=== PATIENT | male | born 1970 | race Caucasian/White ===

== ENCOUNTER 2020-06-06 16:29 | Emergency (ER) | payer OTHER ==
[~2020-06-06] VITALS: Ht 177.8 cm; Wt 72.7 kg
--- NOTE | 2020-06-06 18:05 | REPVR ---
PROCEDURE INFORMATION: Exam: US Pelvis Limited, Male Exam date and time: 06/06/2020 5:45 PM Age: 50 years old Clinical indication: Pain; Other: RT inguinal; Additional info: Bulge right inguinal region; ? Hernia TECHNIQUE: Imaging protocol: Real-time pelvic ultrasound with image documentation. COMPARISON: No relevant prior studies available. FINDINGS: Soft tissues: At rest there is a right inguinal hernia with protrusion of mesenteric fat measuring 1.3 cm. With Valsalva there is protrusion of bowel into the right inguinal canal and estimated at approximately 2.1 cm. The protrusion of bowel reduces at rest. There is a small amount of fat protruding into the left inguinal canal that measure only approximately 6 mm. IMPRESSION: There is protrusion of fat into the right inguinal canal at rest measuring 1.3 cm. However with valsalva gas-filled bowel extends into the right inguinal canal which then measures 2.1 cm. Electronically signed by: Ronn Amaro On 06/06/2020 18:04:33 PM
[2020-06-06 19:15] VITALS: BP 144/94
== END 2020-06-06 19:33 | disposition home or self-care (01) ==
LOC: M ED 16:29 → EDBD 16:29 → M ED 19:33
DX: K40.90 Unilateral inguinal hernia, without obstruction or gangrene, not specified as recurrent (principal)

== ENCOUNTER → 2020-06-20 | Outpatient (CLI) | payer OTHER | LOC: M LABSMTC 13:04 | PROVIDERS: ATTEND Anesthesiology | DX: Z01.812 Encounter for preprocedural laboratory examination (principal); Z20.828 Contact with and (suspected) exposure to other viral communicable diseases ==

== ENCOUNTER 2020-06-25 09:43 | Day surgery (SDC) | payer OTHER ==
[~2020-06-25] VITALS: Ht 177.8 cm; Wt 70.8 kg
[~2020-06-25 09:43] MED LIST: LR 1,000 ML IV ONE; ceFAZolin SOD 2 GM in IV 1 EA IV ONE
[2020-06-25 10:45] LABS: HEMATOCRIT 43.3 % (42.0-52.0); HEMOGLOBIN 14.4 g/dl (13.5-17.5); MEAN CORPUSCULAR HEMOGLOBIN 29.8 pg (27.0-33.0); MEAN CORPUSCULAR HGB CONC 33.3 g/dl (32.0-36.5); MEAN CORPUSCULAR VOLUME 89.6 fl (80.0-96.0); PLATELET COUNT, AUTOMATED 234 10^3/uL (150-450); RED BLOOD COUNT 4.83 10^6/uL (4.30-6.10); WHITE BLOOD COUNT 4.4 10^3/uL (4.0-10.0)
[2020-06-25 11:02] LABS: BLOOD UREA NITROGEN 21 MG/DL (7-18); CALCIUM LEVEL 9.2 MG/DL (8.5-10.1); CARBON DIOXIDE LEVEL 26 MEQ/L (21-32); CHLORIDE LEVEL 106 MEQ/L (98-107); CREATININE FOR GFR 0.86 MG/DL (0.70-1.30); GLOMERULAR FILTRATION RATE > 60.0 (>56); GLUCOSE, FASTING 104 MG/DL (70-100); POTASSIUM SERUM 4.3 MEQ/L (3.5-5.1); SODIUM LEVEL 138 MEQ/L (136-145)
[2020-06-25] MEDS ORDERED: BUPIVACAINE HCL 0.25% 10ML VIAL As Ordered ONE (11:09)
[2020-06-25] MEDS ORDERED: LIDOCAINE 1% MDV 20ML VIAL As Ordered ONE (11:09)
[2020-06-25] MEDS ORDERED: MIDAZOLAM INJ 2MG/2ML VIAL (J2250 PER 1MG) As Ordered ONE (11:42)
[2020-06-25] MEDS ORDERED: propofoL 200 MG/20 ML VIAL As Ordered ONE (11:42)
[2020-06-25] MEDS ORDERED: ONDANSETRON 4MG/2ML VIAL As Ordered ONE (11:42)
[2020-06-25] MEDS ORDERED: LIDOCAINE 2% 100MG/5ML SDV (FOR ANES.) As Ordered ONE (11:42)
[2020-06-25] MEDS ORDERED: fentaNYL 250 MCG/5 ML INJECTION (J3010) As Ordered ONE (11:42)
[2020-06-25] MEDS ORDERED: dexameTHASONE 4 MG/ML 1ML VIAL (J1100 PER 1MG) As Ordered ONE (11:42)
[2020-06-25] MEDS ORDERED: ROCURONIUM BROMIDE 50 MG/5 ML VIAL As Ordered ONE ×2 (11:42→12:32)
[2020-06-25] MEDS ORDERED: PHENYLephrine HCL 500 MCG/5 ML (100MCG/ML) SYRINGE (J2370) As Ordered ONE (11:53)
[2020-06-25] MEDS ORDERED: KETOROLAC 60MG 2ML VIAL As Ordered ONE (12:33)
[2020-06-25] MEDS ORDERED: SUGAMMADEX SODIUM 500 MG/5 ML VIAL (BRIDION) As Ordered ONE (12:34)
[2020-06-25] MEDS ORDERED: DESFLURANE 240 ML INHALANT As Ordered ONE (12:36)
[2020-06-25] MEDS ORDERED: ONDANSETRON 4MG/2ML VIAL IV PRN (14:00)
[2020-06-25] MEDS ORDERED: fentaNYL 100 MCG/2 ML INJECTION (J3010) IV PRN (14:00)
[2020-06-25] MEDS ORDERED: MORPHINE 2 MG/ML 1ML VIAL (J2270) IV PRN (14:00)
[2020-06-25] MEDS ORDERED: NS 1,000 ML IV SCH (14:00)
[2020-06-25] MEDS ORDERED: NORCO, ANEXSIA 5/325MG TABLET (HYDROcodone/ACETAMINOPHEN) PO PRN (14:00)
[2020-06-25] MEDS ORDERED: METOCLOPRAMIDE INJ 10MG/2ML VIAL (J2765 PER 1) IV PRN (14:00)
[2020-06-25] MEDS ORDERED: LR 1,000 ML IV SCH (14:00)
[2020-06-25] MEDS: PERCOCET 5MG/325MG TAB PO PRN ×2 (14:01→15:38)
[2020-06-25 16:15] VITALS: BP 135/82
--- NOTE | 2020-06-25 23:43 | ECGEPIP ---
[facility] Test Date: 2020-06-25 Pat Name: MERLY JAMIL Department: Room: - Gender: Male [employer]: : 1970 Requested By: Yves De La Cruz Order Number: [id number] Reading MD: Doyle Menchaca Measurements Intervals Creole Rate: 61 P: 82 IL: 175 QRS: 66 QRSD: 102 T: 84 QT: 352 QTc: 355 Interpretive Statements SINUS RHYTHM NONSPECIFIC T-WAVE ABNORMALITY NO PRIOR TRACING Electronically Signed on 06-25-2020 23:43:46 EST by Doyle Menchaca
--- NOTE | 2020-06-26 14:13 | RO ---
DATE OF OPERATION: 06/25/2020 PREOPERATIVE DIAGNOSIS: Right inguinal hernia. POSTOPERATIVE DIAGNOSIS: Right inguinal hernia (indirect). PROCEDURE: Robotic-assisted right inguinal hernia repair with ProGrip mesh. SURGEON: Jake Shipley M.D. INSTALLER [employer] FLOORING: Macarena Zepeda (provided trocar placement, instrument exchange, abdominal wall closure). EBL: Minimal. FLUIDS: Crystalloid. BRIEF PROCEDURE SUMMARY: The patient was brought to the operating room and was given general anesthesia. After adequate anesthesia and preoperative antibiotics were given, the patient was prepped and draped in the usual sterile fashion. Next, a supraumbilical incision was made with the skin knife. Blunt dissection was carried down to the fascia and Veress needle placed into the abdominal cavity and insufflated to 15 mm of pressure. A dilating 8 mm trocar was placed. Under direct visualization, two lateral trocars were placed in right inguinal area and cecum which was abutting the abdominal wall on the right-hand side but actually a portion of the cecum was going down into the hernia itself and there were some chronic adhesions right along the cecal wall on the right lateral aspect. In any case, these were taken down sharply with scissors and some minimal electrocautery on the adhesion itself and the lateral border of the cecum was just mobilized enough to get it out of internal ring opening. Once this was performed the peritoneum was incised superiorly and dropped down with combination of blunt and sharp dissection as well as electrocautery and eventually this plane was nicely opened up, first going all the way medial to medial umbilical ligament and preperitoneal space was opened quite nicely at this time but there was still a fair bit of thickened tissue throughout this area reminding me of individuals with previous radiation from prostatectomy type of surgery. In any case we were able to get through this areolar tissue down to Coopers ligament, seeing this nicely in the backside of pubis, coming back the peritoneum was followed laterally and brought up medially to the internal ring. Once I was at the internal ring laterally I was able to mobilize this hernia sac quite nicely but it still was quite adherent to the surrounding cord structures, etc but these were taken off bluntly and mobilized laterally. Getting distal to the hernia sac tissue was transected and then mobilized off the cord structures and off the vas where it dove deep into the pelvis. Right in this area, however, on the medial aspect, there is chronic scarring that was appreciated just on the inside edge of the area where the epigastrics come through as well as the medial aspect of the hernia sac. In this area this was taken down with electrocautery as well as sharp dissection, taking care to stay off epigastric vessels as well as iliac vessels posteriorly. There was some minimal oozing in this area which was controlled with some pressure. Initially I had concerns that this was possibly a little branch off the epigastrics but after reevaluating it, it looks like it may have been some small little oozing from scar tissue itself. In any case this did not continue to bleed but I had already placed some Tisseel on the table and felt that it was reasonable to put some in this area. ProGrip mesh was cut to the appropriate size, pressed into position. The drop-off right around that area what I was talking about previously, specifically the vas diving deep, was quite a significant drop-off and the mesh did not sit nicely. Thus I made a small incision on the mesh itself, dropping the mesh distal to this so that it was lying up nicely against the tissue in this area. Once this was nicely sitting against the tissue the peritoneum was closed with running 3-0 V-Loc suture. The colon was reevaluated at this time and revealed intact colon. Trocars were removed under direct visualization. 4-0 Vicryl was used to close all skin incisions. Steri-Strips and a dry sterile dressing were applied. The patient was awakened, extubated and brought to the recovery room awake, alert, and hemodynamically stable. Sponge and needle counts were correct x2. TONY
== END 2020-06-25 16:15 | disposition home or self-care (01) ==
LOC: M SDC 09:43
PROVIDERS: ATTEND Surgery
DX: K40.90 Unilateral inguinal hernia, without obstruction or gangrene, not specified as recurrent (principal); I10 Essential (primary) hypertension
CPT/HCPCS: 36415; 49650; 80048; 85027; 93005; A6024; C1781; J0690; J1100; J1885; J2250; J2370; J2405; J3010; S2900

== ENCOUNTER → 2020-07-30 | Outpatient (CLI) | payer OTHER ==
--- NOTE | 2020-07-30 10:30 | REP ---
INDICATION: RT GROIN PAIN, EDEMA AND PALPABLE LUMP COMPARISON: None. TECHNIQUE: Realtime grayscale and color evaluation using linear high-frequency transducer. FINDINGS: Directed ultrasound examination of the right groin demonstrates a septated fluid collection measuring 5.7 x 1.7 x 2.7 cm which may reflect seroma related to recent hernia repair (06/25/2020). IMPRESSION: Partially septated fluid collection possibly reflecting postsurgical seroma related to recent hernia repair. <Electronically signed by Jag Gonzalez > 07/30/20 1028
== END ==
LOC: M RAD 09:46
PROVIDERS: ATTEND Nurse Practitioner
DX: R10.31 Right lower quadrant pain (principal); R19.03 Right lower quadrant abdominal swelling, mass and lump; Z98.890 Other specified postprocedural states

== ENCOUNTER 2022-08-25 20:15 | Inpatient (IN) | payer OTHER ==
[~2022-08-25] VITALS: Ht 177.8 cm; Wt 70.9 kg
[2022-08-25 23:08] LABS: HEMATOCRIT 46.6 % (42.0-52.0); HEMOGLOBIN 15.9 g/dl (13.5-17.5); MEAN CORPUSCULAR HEMOGLOBIN 31.1 pg (27.0-33.0); MEAN CORPUSCULAR HGB CONC 34.1 g/dl (32.0-36.5); MEAN CORPUSCULAR VOLUME 91.2 fl (80.0-96.0); PLATELET COUNT, AUTOMATED 275 10^3/uL (150-450); RED BLOOD COUNT 5.11 10^6/uL (4.30-6.10); WHITE BLOOD COUNT 4.8 10^3/uL (4.0-10.0)
[2022-08-25 23:28] LABS: AMPHETAMINES LEVEL URINE NEGATIVE (NEGATIVE); BARBITURATES URINE NEGATIVE (NEGATIVE); BENZODIAZEPINES URINE NEGATIVE (NEGATIVE); CANNABINOIDS URINE NEGATIVE (NEGATIVE); COCAINE METABOLITE URINE NEGATIVE (NEGATIVE); METHADONE URINE NEGATIVE (NEGATIVE); OPIATES URINE NEGATIVE (NEGATIVE); PHENCYCLIDINE URINE NEGATIVE (NEGATIVE)
[2022-08-25 23:30] LABS: ETHYL ALCOHOL (ETHANOL) 0.052 % (0.000-0.010)
[2022-08-25 23:32] LABS: ACETAMINOPHEN LEVEL < 2.0 UG/ML (10.0-20.0); BILIRUBIN,DIRECT < 0.1 MG/DL (<0.4); SALICYLATE LEVEL < 3.0 MG/DL (<30)
[2022-08-25 23:34] LABS: THYROID STIMULATING HORMONE 1.881 uIU/ML (0.55-4.78)
[2022-08-25 23:40] LABS: RSV AMPLIFICATION NEGATIVE (NEGATIVE)
[2022-08-25 23:46] LABS: ALBUMIN 4.1 G/DL (3.2-5.2); ALKALINE PHOSPHATASE 83 U/L (46-116); ALT/SGPT 42 U/L (7.0-40); AST/SGOT 47 U/L (<34); BILIRUBIN,TOTAL 0.4 MG/DL (0.3-1.2); BLOOD UREA NITROGEN 11 MG/DL (9-23); CALCIUM LEVEL 9.1 MG/DL (8.5-10.1); CARBON DIOXIDE LEVEL 22 MMOL/L (20-31); CHLORIDE LEVEL 104 MMOL/L (98-107); CREATININE FOR GFR 0.73 MG/DL (0.70-1.30); GLOMERULAR FILTRATION RATE > 60.0 (>56); GLUCOSE, FASTING 106 MG/DL (60-100); POTASSIUM SERUM 5.4 MMOL/L (3.5-5.1); SODIUM LEVEL 139 MMOL/L (136-145); TOTAL PROTEIN 7.5 G/DL (5.7-8.2)
[2022-08-26] MEDS ORDERED: HOME MED LIST COMPLETE! XX SCH (02:00)
[2022-08-26 08:09] LABS: HEPATITIS B SURFACE ANTIGEN NEGATIVE (NEGATIVE)
[2022-08-26 08:30] LABS: HEPATITIS C VIRUS ABY INDEX 0.1 INDEX (<0.8)
[2022-08-26 08:31] LABS: HEPATITIS B CORE ANTIBODY IGM NEGATIVE (NEGATIVE)
[2022-08-26] MEDS: NICOTINE 21MG/24HR 1 EA TRANSDERMAL TD SCH (09:00)
[2022-08-26] MEDS ORDERED: MOM 30ML SUSPENSION UDC PO PRN (12:15)
[2022-08-26] MEDS ORDERED: OLANZapine ORAL DISINTEGRATING TAB 5MG PO PRN (12:15)
[2022-08-26] MEDS ORDERED: diphenhydrAMINE 25MG CAP PO PRN (12:15)
[2022-08-26] MEDS ORDERED: traZODone 50 MG TAB PO PRN (12:15)
[2022-08-26] MEDS ORDERED: LORazepam 2 MG TAB PO PRN (12:15)
[2022-08-26] MEDS ORDERED: IBUPROFEN 400MG TAB PO PRN (12:15)
[2022-08-26] MEDS ORDERED: MAALOX 30 ML SUSP *UDC PO PRN (12:15)
[2022-08-26 15:08] VITALS: BP 144/82
[2022-08-26] MEDS: THIAMINE 100 MG TAB PO SCH (21:59)
[2022-08-26 22:23] VITALS: BP 156/90
[2022-08-27 06:35] VITALS: BP 156/88
[2022-08-27 06:55] VITALS: BP 156/88
[2022-08-27] MEDS: FOLIC ACID 1MG TAB PO SCH (08:12)
[2022-08-27] MEDS: THIAMINE 100 MG TAB PO SCH ×2 (08:12→21:28)
[2022-08-27] MEDS: MULTIVITAMINS/MINERALS THERAP 1 TAB PO SCH (08:12)
[2022-08-27] MEDS: NICOTINE 21MG/24HR 1 EA TRANSDERMAL TD SCH (08:14)
[2022-08-27 15:00] VITALS: BP 156/80
[2022-08-27 16:05] VITALS: BP 156/80
[2022-08-27 21:28] VITALS: BP 156/98
[2022-08-28 06:26] VITALS: BP 129/78
[2022-08-28] MEDS: NICOTINE 21MG/24HR 1 EA TRANSDERMAL TD SCH (09:00)
[2022-08-28] MEDS ORDERED: LISI10TA22 PO (10:23)
[2022-08-28] MEDS: MULTIVITAMINS/MINERALS THERAP 1 TAB PO SCH (10:33)
[2022-08-28] MEDS: THIAMINE 100 MG TAB PO SCH (10:33)
[2022-08-28] MEDS: FOLIC ACID 1MG TAB PO SCH (10:33)
== END 2022-08-28 12:22 | disposition home or self-care (01) | DRG 755 ==
LOC: M ED 21:54 → M ED INP 08-26 12:15 → M PSY 08-26 14:52
PROVIDERS: ADMIT Psychiatry & Neurology Psychiatry; ATTEND Student in an Organized Health Care Education/Training Program
DX: F43.20 Adjustment disorder, unspecified (principal); I10 Essential (primary) hypertension; R45.851 Suicidal ideations; F10.10 Alcohol abuse, uncomplicated

== ENCOUNTER → 2022-10-29 | Outpatient (REF) | payer OTHER ==
[~2022-10-29] MED LIST changes: +LISI10TA22 PO; -LR 1,000 ML IV ONE; -ceFAZolin SOD 2 GM in IV 1 EA IV ONE
[2022-10-29 13:12] LABS: ALBUMIN 3.9 G/DL (3.2-5.2); ALKALINE PHOSPHATASE 89 U/L (46-116); ALT/SGPT 27 U/L (7.0-40); AST/SGOT 25 U/L (<34); BILIRUBIN,TOTAL 0.6 MG/DL (0.3-1.2); BLOOD UREA NITROGEN 14 MG/DL (9-23); CALCIUM LEVEL 9.5 MG/DL (8.5-10.1); CARBON DIOXIDE LEVEL 27 MMOL/L (20-31); CHLORIDE LEVEL 106 MMOL/L (98-107); CHOLESTEROL LEVEL 196 MG/DL (<200); CHOLESTEROL RISK RATIO 2.82 (<5); CREATININE FOR GFR 0.87 MG/DL (0.70-1.30); GLOMERULAR FILTRATION RATE > 60.0 (>56); GLUCOSE, FASTING 97 MG/DL (60-100); HDL CHOLESTEROL 69.5 MG/DL (>40); LDL CHOLESTEROL 111.7 MG/DL (<100); NON-HDL-C 126.5 MG/DL; POTASSIUM SERUM 4.8 MMOL/L (3.5-5.1); SODIUM LEVEL 138 MMOL/L (136-145); TOTAL PROTEIN 7.1 G/DL (5.7-8.2); TRIGLYCERIDES LEVEL 74 MG/DL (<150)
[2022-10-29 13:17] LABS: HEMOGLOBIN A1c 5.2 % (4.0-6.0)
[2022-10-29 13:20] LABS: TOTAL 25(OH) VITAMIN D 16.5 NG/ML (20.0-100.0)
== END ==
LOC: M LAB REF 11:22
PROVIDERS: ATTEND Nurse Practitioner Family
DX: I10 Essential (primary) hypertension (principal); E55.9 Vitamin D deficiency, unspecified; Z68.24 Body mass index [BMI] 24.0-24.9, adult

== ENCOUNTER 2023-06-18 10:35 | Emergency (ER) | payer BC ==
[~2023-06-18] VITALS: Ht 177.8 cm; Wt 72.7 kg
[~2023-06-18 10:35] MED LIST changes: -CYCL-707 PO; -LIDO5DIS41 TOP; -PRED20TA PO
[2023-06-18] MEDS ORDERED: KETOROLAC 30 MG/ML 1ML VIAL IV ONE (12:40)
[2023-06-18] MEDS ORDERED: LIDOCAINE 5% (LIDODERM) PATCH TD ONE (12:40)
[2023-06-18] MEDS ORDERED: ACETAMINOPHEN *IV* 1,000 MG in IV 1 EA IV ONE (12:40)
[2023-06-18 13:17] LABS: BASO # 0.1 10^3/uL (0.0-0.2); BASO % 0.8 % (0.0-1.0); EOS # 0.2 10^3/uL (0.0-0.5); EOS % 4.1 % (0.0-3.0); HEMATOCRIT 44.5 % (42.0-52.0); LYMPH # 0.6 10^3/uL (1.5-5.0); LYMPH % 10.8 % (24.0-44.0); MEAN CORPUSCULAR HEMOGLOBIN 31.7 pg (27.0-33.0); MEAN CORPUSCULAR HGB CONC 33.7 g/dl (32.0-36.5); MEAN CORPUSCULAR VOLUME 94.1 fl (80.0-96.0); MONO # 0.7 10^3/uL (0.0-0.8); MONO % 11.5 % (2.0-8.0); NEUTROPHILS # 4.2 10^3/uL (1.5-8.5); PLATELET COUNT, AUTOMATED 262 10^3/uL (150-450); RED BLOOD COUNT 4.73 10^6/uL (4.30-6.10); WHITE BLOOD COUNT 5.9 10^3/uL (4.0-10.0)
[2023-06-18 13:26] LABS: ERYTHROCYTE SEDIMENTATION RATE 9 mm/hr (0-20)
[2023-06-18 13:45] LABS: C REACTIVE PROTEIN QUANTITATIV < 0.40 MG/DL (<1.0)
[2023-06-18 13:47] LABS: ALBUMIN 4.2 G/DL (3.2-5.2); ALKALINE PHOSPHATASE 73 U/L (46-116); ALT/SGPT 36 U/L (7.0-40); AST/SGOT 28 U/L (<34); BILIRUBIN,DIRECT 0.2 MG/DL (<0.4); BILIRUBIN,TOTAL 0.5 MG/DL (0.3-1.2); BLOOD UREA NITROGEN 17 MG/DL (9-23); CALCIUM LEVEL 9.4 MG/DL (8.5-10.1); CARBON DIOXIDE LEVEL 26 MMOL/L (20-31); CHLORIDE LEVEL 104 MMOL/L (98-107); CREATININE FOR GFR 0.98 MG/DL (0.70-1.30); GLOMERULAR FILTRATION RATE > 60.0 (>56); GLUCOSE, FASTING 91 MG/DL (60-100); POTASSIUM SERUM 4.7 MMOL/L (3.5-5.1); SODIUM LEVEL 140 MMOL/L (136-145); TOTAL PROTEIN 7.3 G/DL (5.7-8.2)
[2023-06-18] MEDS ORDERED: dexAMETHasone 20MG/5ML VIAL IV ONE (13:55)
[2023-06-18] MEDS ORDERED: LIDO5DIS41 TOP (14:19)
[2023-06-18] MEDS ORDERED: PRED20TA PO (14:19)
[2023-06-18] MEDS ORDERED: CYCL-707 PO (14:19)
[2023-06-18 14:50] VITALS: BP 150/94; TEMP 98.3; O2SAT 99
== END 2023-06-18 14:54 | disposition home or self-care (01) ==
LOC: M ED 10:35
DX: M51.27 Other intervertebral disc displacement, lumbosacral region (principal); M51.26 Other intervertebral disc displacement, lumbar region; I10 Essential (primary) hypertension; F32.A Depression, unspecified; K40.90 Unilateral inguinal hernia, without obstruction or gangrene, not specified as recurrent; Z79.811 Long term (current) use of aromatase inhibitors; Z79.52 Long term (current) use of systemic steroids; Z79.899 Other long term (current) drug therapy
CPT/HCPCS: 72131; 80048; 80076; 81001; 85025; 85652; 86140; 96374; 96375; 99284; J0131; J1100; J1885

== ENCOUNTER → 2023-06-18 | Outpatient (CLI) | payer BC ==
[~2023-06-18] MED LIST changes: +CYCL-707 PO; +LIDO5DIS41 TOP; +PRED20TA PO
== END ==
LOC: M WUC 09:57
PROVIDERS: ATTEND Nurse Practitioner Family
DX: M41.86 Other forms of scoliosis, lumbar region (principal)